=== PATIENT | male | born 1950 | race Caucasian/White ===

== ENCOUNTER 2019-05-26 10:14 | Day surgery (SDC) | payer BC, MEDICARE, OTHER ==
[~2019-05-26 10:14] MED LIST: Lactated Ringers 1,000 ML IV SCH; Propofol 200 MG/20 ML SDV ONE
--- NOTE | 2019-05-26 10:29 | PCM.PREANE ---
Preanesthetic Assessment - Anesthesia/Transfusion/Family Hx Anesthesia History: Prior Anesthesia Without Reaction Family History of Anesthesia Reaction: No Transfusion History: No Prior Transfusion(s) - Review of Systems General: No Symptoms Pulmonary: No Symptoms Cardiovascular: No Symptoms Gastrointestinal: No Symptoms Neurological: No Symptoms Other: Reports: None - Physical Assessment NPO Status Date: 05/25/19 Vital Signs: Last Vital Signs Temp 97.3 F 05/26/19 10:25 Pulse 69 05/26/19 10:25 Resp 18 05/26/19 10:25 BP 125/77 05/26/19 10:25 Pulse Ox 98 05/26/19 10:25 Height: 5 ft 7 in Weight: 71.668 kg ASA Class: 2 Mental Status: Alert & Oriented x3 Airway Class: Mallampati = 2 Dentition: Reports: Missing Tooth/Teeth ROM/Head Extension: Full Lungs: Clear to Auscultation, Normal Respiratory Effort Cardiovascular: Regular Rate, Regular Rhythm - Allergies Allergies/Adverse Reactions: Allergies Allergy/AdvReac Type Severity Reaction Status Date / Time No Known Allergies Allergy Verified 05/23/19 13:19 - Blood Blood Available: No - Anesthesia Plan Pre-Op Medication Ordered: None - Acknowledgements Anesthesia Type Planned: General Anesthesia Pt an Appropriate Candidate for the Planned Anesthesia: Yes Alternatives and Risks of Anesthesia Discussed w Pt/Guardian: Yes Pt/Guardian Understands and Agrees with Anesthesia Plan: Yes Additional Comments: PMH: smoker, normal heart cath recently PLAN: tiva PreAnesthesia Questionnaire HEENT History: Reports: Other (See Below) Other HEENT History: wears glasses Cardiovascular History: Reports: CAD, High Cholesterol Respiratory History: Reports: Other (See Below) Other Respiratory History: hx of smoking for 55 years Gastrointestinal History: Reports: None Genitourinary History: Reports: Renal Calculus Musculoskeletal History: Reports: Back Pain, Chronic, Osteoarthritis Neurological History: Reports: None Psychiatric History: Reports: None Endocrine/Metabolic History: Reports: None Hematologic History: Reports: None Immunologic History: Reports: None Oncologic (Cancer) History: Reports: None Dermatologic History: Reports: None - Past Surgical History Head Surgeries/Procedures: Reports: None HEENT Surgical History: Reports: None Cardiovascular Surgical History: Reports: None Respiratory Surgical History: Reports: None GI Surgical History: Reports: Appendectomy Male Surgical History: Reports: None Endocrine Surgical History: Reports: None Neurological Surgical History: Reports: None Musculoskeletal Surgical History: Reports: Arthroscopic Knee, Knee Replacement Other Musculoskeletal Surgeries/Procedures:: ACL repair right knee, right TKA Oncologic Surgical History: Reports: None Dermatological Surgical History: Reports: Other (See Below) - SUBSTANCE USE Smoking Status *Q: Current Every Day Smoker Tobacco Use Within Last Twelve Months: Cigarettes - HOME MEDS Home Medications: Home Meds Acetaminophen [Tylenol] 2 tab PO ASDIRECTED PRN 05/23/19 [History] Aspirin [Low Dose Aspirin EC] 81 mg PO DAILY 05/23/19 [History] Cyanocobalamin (Vitamin B-12) [Vitamin B12] 5,000 mcg PO DAILY 05/23/19 [History ] Diclofenac Sodium [Voltaren 1% Gel] 1 applic TOP ASDIRECTED PRN 05/23/19 [ History] Glucosam/Chond/Collagen/Hyalur [Glucosamine Chondroitin] 1 tab PO DAILY [History] Ibuprofen 600 mg PO ASDIRECTED PRN 05/23/19 [History] Metaxalone 800 mg PO DAILY 05/23/19 [History] Multivitamin [Multivitamins] 1 tab PO DAILY 05/23/19 [History] Nitroglycerin 0.4 mg SL ASDIRECTED PRN 05/23/19 [History] Omeprazole 20 mg PO DAILY 05/23/19 [History] Rosuvastatin Calcium 20 mg PO DAILY 05/23/19 [History] - CURRENT (IN HOUSE) MEDS Current Meds: Current Medications Lactated Ringer's (Ringers, Lactated) 1,000 mls @ 125 mls/hr IV ASDIRECTED MICHELLE Discontinued Medications Propofol (Diprivan 20 Ml) Confirm Administered Dose 400 mg .ROUTE .STK-MED ONE Stop: 05/26/19 10:06
--- NOTE | 2019-05-26 11:37 | PCM.OPNOTE ---
- General Post-Op/Procedure Note Date of Surgery/Procedure: 05/26/19 Operative Procedure(s): Colonoscopy Pre Op Diagnosis: Hemoccult-positive stool Post-Op Diagnosis: Sigmoid diverticulosis Anesthesia Technique: MAC (ASA II) Primary Surgeon: Leonardo Barry Condition: Good Free Text/Narrative:: DICTATION [id number] CPT CODE 02759
[2019-05-26] MEDS ORDERED: Lactated Ringers 1,000 ML IV SCH (11:45)
--- NOTE | 2019-05-26 11:45 | PCM.POSTAN ---
POST ANESTHESIA ASSESSMENT - MENTAL STATUS Mental Status: Alert, Oriented - VITAL SIGNS Vital Signs: Last Vital Signs Temp 97.5 F 05/26/19 11:32 Pulse 58 L 05/26/19 11:37 Resp 18 05/26/19 11:37 BP 108/66 05/26/19 11:37 Pulse Ox 99 05/26/19 11:37 - RESPIRATORY Respiratory Status: Respiratory Rate WNL, Airway Patent, O2 Saturation Stable - CARDIOVASCULAR CV Status: Pulse Rate WNL, Blood Pressure Stable - GASTROINTESTINAL GI Status: No Symptoms - PAIN Pain Score: 0 - POST OP HYDRATION Hydration Status: Adequate & Stable
[2019-05-26 11:57] VITALS: BP 104/55; PULSE 60
--- NOTE | 2019-05-26 12:05 | PCM48HPAN ---
Post Anesthesia Note - EVALUATION WITHIN 48HRS OF ANESTHETIC Vital Signs in Normal Range: Yes Patient Participated in Evaluation: Yes Respiratory Function Stable: Yes Airway Patent: Yes Cardiovascular Function Stable: Yes Hydration Status Stable: Yes Pain Control Satisfactory: Yes Nausea and Vomiting Control Satisfactory: Yes Mental Status Recovered: Yes Vital Signs: Last Vital Signs Temp 97.0 F 05/26/19 11:49 Pulse 60 05/26/19 11:49 Resp 14 05/26/19 11:49 BP 104/55 L 05/26/19 11:49 Pulse Ox 97 05/26/19 11:49
--- NOTE | 2019-05-26 15:10 | OR ---
SURGEON: Leonardo Barry M.D. DATE OF PROCEDURE: 05/26/2019 OPERATION PERFORMED: Colonoscopy. PRIMARY SURGEON: Leonardo Barry MD. ANESTHESIA: MAC. ASA CLASSIFICATION: II. PREOPERATIVE DIAGNOSIS: Hemoccult positive stool. POSTOPERATIVE DIAGNOSIS: Severe sigmoid diverticulosis. DESCRIPTION OF PROCEDURE: The patient was taken to the endoscopy room, positioned on the endoscopy table in the left lateral decubitus position. Time-out was called for appropriate identification of the patient and procedure. Monitored anesthesia care was provided. The colonoscope was inserted into the rectum and advanced with minimal difficulty to the cecum where the colonoscope was retroflexed to visualize the ascending colon from below. The colonoscope was then straightened and slowly withdrawn. The cecum, ascending colon, hepatic flexure, transverse colon, splenic flexure, and descending colon showed no tumors, polyps, diverticula, or angiodysplastic changes. The colonoscope was withdrawn to the sigmoid colon which demonstrated severe diverticular change. No obvious stricture or spasm was noted, but there was some resistance to insertion and withdrawal of the scope through the distal sigmoid colon. I did not see any polyps. There was no obvious stricture and there were no acute inflammatory changes noted on examination today. The colonoscope was then withdrawn to the rectum and retroflexed to visualize the anal orifice from above. Again, no tumors or polyps were seen, and there were no acute hemorrhoidal changes. The colonoscope was then straightened, the rectum aspirated, and the colonoscope removed. The patient tolerated the procedure well and was taken to recovery room in satisfactory condition. BRITTANIE / MASTER /[id number]
== END 2019-05-26 12:16 | disposition home or self-care (01) ==
LOC: MW.SDS 10:14
PROVIDERS: ATTEND Surgery
DX: K57.30 Diverticulosis of large intestine without perforation or abscess without bleeding (principal); I25.10 Atherosclerotic heart disease of native coronary artery without angina pectoris; E78.00 Pure hypercholesterolemia, unspecified; F17.210 Nicotine dependence, cigarettes, uncomplicated; Z79.82 Long term (current) use of aspirin; Z79.899 Other long term (current) drug therapy; Z90.49 Acquired absence of other specified parts of digestive tract
CPT/HCPCS: 45378; J2704; J7120

== ENCOUNTER 2022-04-11 08:32 | Emergency (ER) | payer BC, MEDICARE, OTHER ==
[2022-04-11] MEDS ORDERED: Acetaminophen 325 MG Tab PO ONE (09:54)
[2022-04-11] MEDS ORDERED: Ibuprofen 600 MG Tab PO ONE (09:54)
[2022-04-11 10:17] VITALS: BP 128/74; PULSE 61
== END 2022-04-11 10:22 | disposition home or self-care (01) ==
LOC: MW.ED 08:32
DX: S69.92XA Unspecified injury of left wrist, hand and finger(s), initial encounter (principal); S69.91XA Unspecified injury of right wrist, hand and finger(s), initial encounter; Z79.82 Long term (current) use of aspirin; Z79.899 Other long term (current) drug therapy; W01.0XXA Fall on same level from slipping, tripping and stumbling without subsequent striking against object, initial encounter
CPT/HCPCS: 29125; 73030; 73110; 73130; 99283; A9270

== ENCOUNTER 2022-12-17 08:30 | Emergency (ER) | payer BC, MEDICARE ==
[2022-12-17] MEDS ORDERED: Diazepam 2 MG Tab PO ONE (09:25)
[2022-12-17] MEDS ORDERED: Ketorolac 30 MG/ML SDV IM ONE (09:25)
[2022-12-17 10:32] LABS: APPEARANCE,URINE CLEAR; BILIRUBIN,URINE NEGATIVE (NEGATIVE); COLOR,URINE YELLOW; GLUCOSE,URINE NEGATIVE (NEGATIVE); KETONES,URINE TRACE mg/dL (NEGATIVE); LEUKOCYTE ESTERASE,URINE NEGATIVE (NEGATIVE); NITRITE,URINE NEGATIVE (NEGATIVE); OCCULT BLOOD,URINE NEGATIVE (NEGATIVE); PH,URINE 5.5 (5.0-8.0); PROTEIN,URINE NEGATIVE (NEGATIVE)
[2022-12-17 12:15] VITALS: BP 122/68; PULSE 53
== END 2022-12-17 12:25 | disposition home or self-care (01) ==
LOC: MW.ED 08:30
DX: M54.50 Low back pain, unspecified (principal); I25.10 Atherosclerotic heart disease of native coronary artery without angina pectoris; E78.00 Pure hypercholesterolemia, unspecified; M19.90 Unspecified osteoarthritis, unspecified site; Z79.82 Long term (current) use of aspirin; Z79.899 Other long term (current) drug therapy
CPT/HCPCS: 74176; 81003; 96372; 99284; A9270; J1885; 99283